=== PATIENT | male | born 1945 ===

== ENCOUNTER 2017-11-30 14:14 | Outpatient (REF) | payer MEDICARE, SELFPAY ==
[2017-11-30 20:16] LABS: Abs Immature Grans 0.01 k/cumm (0.0-0.09); Absolute Basophil Count 0.03 k/cumm (0.0-0.2); Absolute Eosinophil Count 0.19 k/cumm (0.0-0.7); Absolute Monocyte Count 0.45 k/cumm (0.11-0.7); Absolute Neutrophil Count 3.97 k/cumm (1.2-6.7); Basophils % 0.5; HCT 43.8 % (40.0-50.0); HGB 15.3 g/dL (13.5-17.5); Immature Grans % 0.2; Lymphocytes % 25.6; Mean Corp. HGB Concentration 34.9 g/dL (32.0-36.0); Mean Corpuscular Hemoglobin 28.7 pg (27.0-33.0); Mean Platelet Volume 9.2 fL (8.0-11.0); Monocytes % 7.2; Neutrophils % 63.5; Platelet Count 188 x1000/uL (130-400); RBC 5.34 m/cumm (4.50-6.00); RBC Distribution Width 14.7 % (11.8-14.1); White Blood Cell Count 6.25 k/cumm (4.4-10.8)
[2017-11-30 20:54] LABS: ALT 27 U/L (12-78); AST 16 U/L (15-37); Albumin 4.1 g/dL (3.4-5.0); Alkaline Phosphatase 66 U/L (46-116); Anion Gap 10.2 mmol/L (3-11); BUN 20 mg/dL (7-18); Bilirubin, Total 0.5 mg/dL (0.2-1.0); CO2 27.8 mmol/L (21.0-32.0); CREATININE 1.47 mg/dL (0.70-1.30); Calcium 8.8 mg/dL (8.5-10.1); Chloride 103 mmol/L (98-107); Estimated GFR 47.09 (mL/min/1.73m2); Glucose 109 mg/dL (70-100); Potassium 4.8 mmol/L (3.5-5.1); Sodium 141 mmol/L (136-145); TSH 2.14 uIU/mL (0.358-3.74); Total Protein 7.3 g/dL (6.4-8.2)
[2017-12-02 10:35] LABS: PSA, Screening 1.1 ng/ml (0-6.5)
== END 2017-11-30 14:34 ==
LOC: NCHCN 14:14
PROVIDERS: PCP Internal Medicine; Visit Provider Physician Assistant Medical
DX: R06.02 Shortness of breath (principal); R61 Generalized hyperhidrosis; Z12.5 Encounter for screening for malignant neoplasm of prostate
CPT/HCPCS: 80053; 84153; 81015; 84443; 85025

== ENCOUNTER 2018-06-30 12:24 | Outpatient (REF) | payer MEDICARE, SELFPAY ==
[2018-06-30 18:54] LABS: HCT 43.3 % (40.0-50.0); HGB 15.2 g/dL (13.5-17.5); Mean Corp. HGB Concentration 35.1 g/dL (32.0-36.0); Mean Corpuscular Hemoglobin 28.5 pg (27.0-33.0); Mean Corpuscular Volume 81.1 fL (80-95); Platelet Count 175 x1000/uL (130-400); RBC 5.34 m/cumm (4.50-6.00); RBC Distribution Width 14.7 % (11.8-14.1); White Blood Cell Count 4.91 k/cumm (4.4-10.8)
[2018-06-30 19:03] LABS: Anion Gap 8.6 mmol/L (3-11); BUN 25 mg/dL (7-18); CO2 27.4 mmol/L (21.0-32.0); CREATININE 1.12 mg/dL (0.70-1.30); Calcium 8.9 mg/dL (8.5-10.1); Chloride 103 mmol/L (98-107); Glucose 95 mg/dL (70-100); Potassium 4.6 mmol/L (3.5-5.1); Sodium 139 mmol/L (136-145)
== END 2018-06-30 12:44 ==
LOC: NCHCN 12:24
PROVIDERS: PCP Internal Medicine; Visit Provider Physician Assistant Medical
DX: R61 Generalized hyperhidrosis (principal); R05 Cough
CPT/HCPCS: 80048; 85027

== ENCOUNTER 2018-07-21 12:16 | Outpatient (REF) | payer MEDICARE, SELFPAY ==
[2018-07-21 19:58] LABS: Troponin I < 0.02 ng/mL (0.00-0.06)
== END 2018-07-21 12:36 ==
LOC: NCHCN 12:16
PROVIDERS: PCP Internal Medicine; Visit Provider Physician Assistant Medical
DX: R61 Generalized hyperhidrosis (principal); R06.09 Other forms of dyspnea; R05 Cough
CPT/HCPCS: 84443; 84484

== ENCOUNTER 2018-12-20 17:30 | Outpatient (REF) | payer MEDICARE, SELFPAY | END 2018-12-20 17:50 | LOC: NCHCN 17:30 | PROVIDERS: PCP Internal Medicine; Visit Provider Nurse Practitioner Family | DX: R30.0 Dysuria (principal) | CPT/HCPCS: 87086 ==

== ENCOUNTER 2019-08-23 12:02 | Outpatient (REF) | payer MEDICARE, SELFPAY ==
[2019-08-23 20:15] LABS: Abs Immature Grans 0.02 k/cumm (0.0-0.09); Absolute Basophil Count 0.03 k/cumm (0.0-0.2); Absolute Eosinophil Count 0.23 k/cumm (0.0-0.7); Absolute Lymphocyte Count 1.97 k/cumm (1.2-3.4); Absolute Monocyte Count 0.52 k/cumm (0.11-0.7); Basophils % 0.5; HCT 45.4 % (40.0-50.0); HGB 15.7 g/dL (13.5-17.5); Immature Grans % 0.3 %; Lymphocytes % 34.1; Mean Corp. HGB Concentration 34.6 g/dL (32.0-36.0); Mean Corpuscular Hemoglobin 28.3 pg (27.0-33.0); Mean Corpuscular Volume 81.8 fL (80-95); Neutrophils % 52.1; Platelet Count 215 x1000/uL (130-400); RBC 5.55 m/cumm (4.50-6.00); RBC Distribution Width 14.6 % (11.8-14.1); White Blood Cell Count 5.77 k/cumm (4.4-10.8)
[2019-08-23 20:43] LABS: ALT 22 U/L (16-63); AST 18 U/L (15-37); Albumin 4.1 g/dL (3.4-5.0); Alkaline Phosphatase 58 U/L (46-116); Anion Gap 7.3 mmol/L (3-11); BUN 19 mg/dL (7-18); CO2 28.7 mmol/L (21.0-32.0); CREATININE 1.37 mg/dL (0.70-1.30); Calculated LDL 152 mg/dL (<100); Chloride 103 mmol/L (98-107); Cholesterol 217 mg/dL (<200); Estimated GFR 50.79 (mL/min/1.73m2); Glucose 94 mg/dL (74-106); HDL Cholesterol 30 mg/dL (40-60); Sodium 139 mmol/L (136-145); TSH (W/Ref FT4) 3.17 uIU/mL (0.36-3.74); Total Protein 7.2 g/dL (6.4-8.2); Triglyceride 177 mg/dL (<150)
[2019-08-25 11:44] LABS: Lyme Ab w Rflx to Lyme Confirm Negative (Negative)
[2019-08-25 12:34] LABS: PSA, Screening 1.1 ng/mL (0.0-6.5)
[2019-08-28 22:41] LABS: Anaplasma phagocytophilum Negative (Negative); B. miyamotoi PCR Negative (Negative); Babesia divergens/MO-1 Negative (Negative); Babesia duncani Negative (Negative); Babesia microti Negative (Negative); Ehrlichia chaffeensis Negative (Negative); Ehrlichia ewingii/canis Negative (Negative); Ehrlichia muris eauclairensis Negative (Negative)
== END 2019-08-23 12:22 ==
LOC: NCHCN 12:02
PROVIDERS: PCP Internal Medicine; Visit Provider Physician Assistant
DX: I10 Essential (primary) hypertension (principal); K21.0 Gastro-esophageal reflux disease with esophagitis; M25.511 Pain in right shoulder; R61 Generalized hyperhidrosis; H04.209 Unspecified epiphora, unspecified side; Z12.5 Encounter for screening for malignant neoplasm of prostate
CPT/HCPCS: 80053; 80061; 84153; 84402; 84403; 87798; 84443; 85025; 86618

== ENCOUNTER 2019-08-28 10:03 | Outpatient (REF) | payer MEDICARE, SELFPAY ==
[2019-08-31 15:43] LABS: Testosterone, Free 9.54 ng/dL (3.28-12.2); Testosterone, Total 596 ng/dL (240-950)
== END 2019-08-28 10:23 ==
LOC: NCHCN 10:03
PROVIDERS: PCP Internal Medicine; Visit Provider Physician Assistant
DX: I10 Essential (primary) hypertension (principal); K21.0 Gastro-esophageal reflux disease with esophagitis; R61 Generalized hyperhidrosis
CPT/HCPCS: 84402; 84403